=== PATIENT | male | born 1995 | race Caucasian/White ===

== ENCOUNTER 2025-03-22 22:47 | Emergency (ER) | payer SELFPAY ==
[~2025-03-22] VITALS: Ht 180.3 cm; Wt 154.0 kg
[2025-03-22 22:51] VITALS: O2SAT 99
[2025-03-22 23:10] VITALS: BP 166/100; PULSE 114; RESP 18; TEMP 36.7; O2SAT 97
[2025-03-23] MEDS: IBUPROFEN 600MG TABLET PO ONE (00:57)
[2025-03-23] MEDS: LIDOCAINE HCL 1% 20ML VIAL INFIL ONE (00:57)
[2025-03-23] MEDS: AMOXICILLIN/POTASSIUM CLAVULANATE 875/125MG TAB PO ONE (00:57)
[2025-03-23] MEDS: BACITRACIN ZINC OINT UDPKT TOP ONE (00:57)
[2025-03-23] MEDS ORDERED: IBUP-1455 MT (01:46)
[2025-03-23] MEDS ORDERED: AMOX1TAB16 MT (01:46)
[2025-03-23] MEDS ORDERED: BO1 TP (01:46)
== END 2025-03-23 02:18 | disposition home or self-care (01) ==
LOC: ER 22:47
DX: S61.210A Laceration without foreign body of right index finger without damage to nail, initial encounter (principal); W54.0XXA Bitten by dog, initial encounter; Y93.89 Activity, other specified; Y92.89 Other specified places as the place of occurrence of the external cause; Y99.8 Other external cause status
CPT/HCPCS: 99283; 12001; 73130; J2003

== ENCOUNTER 2025-03-25 12:28 | Emergency (ER) | payer SELFPAY ==
[~2025-03-25] VITALS: Ht 180.3 cm; Wt 155.0 kg
[~2025-03-25 12:28] MED LIST: AMOX1TAB16 MT; BO1 TP; IBUP-1455 MT
[2025-03-25 12:37] VITALS: O2SAT 99
[2025-03-25 12:39] VITALS: BP 173/106; PULSE 96; RESP 18; TEMP 36.9; O2SAT 98
== END 2025-03-25 15:05 | disposition home or self-care (01) ==
LOC: ER 12:28
DX: Z48.00 Encounter for change or removal of nonsurgical wound dressing (principal)
CPT/HCPCS: 99282

== ENCOUNTER 2025-04-03 11:55 | Emergency (ER) | payer SELFPAY ==
[~2025-04-03] VITALS: Ht 180.3 cm; Wt 146.0 kg
[2025-04-03 12:38] VITALS: TEMP 36.8; O2SAT 98
[2025-04-03 14:18] VITALS: BP 167/109; PULSE 88; RESP 12; O2SAT 97
== END 2025-04-03 14:24 | disposition home or self-care (01) ==
LOC: ER 11:55
DX: S61.411D Laceration without foreign body of right hand, subsequent encounter (principal); Z79.899 Other long term (current) drug therapy; X58.XXXD Exposure to other specified factors, subsequent encounter
CPT/HCPCS: 99282; Z7610